=== PATIENT | female | born 1985 | race Caucasian/White ===

== ENCOUNTER 2016-10-02 19:39 | Emergency (ER) | payer SELFPAY ==
[~2016-10-02] VITALS: Ht 160 cm; Wt 45.5 kg
[~2016-10-02 19:39] MED LIST: METH40TA9 PO; XANA1TAB6 PO
[2016-10-02 19:42] VITALS: BP 124/77; PULSE 103; RESP 16; TEMP 97.7; O2SAT 99
[2016-10-02] MEDS ORDERED: PRED-503 PO (20:07)
--- NOTE | 2016-10-02 20:12 | PD ---
HPI Chief Complaint: Allergic/Adverse Reaction Time Seen by Provider: 20:07 Travel History International Travel<30 days: No Contact w/Intl Traveler<30days: No Traveled to known affect area: No History of Present Illness HPI 31-year-old white female presents to emergency Department with complaints of a rash. She states that she has had allergic reactions in the past on multiple occasions. She states that she was referred for skin patch testing but cannot afford the procedure. She states that she typically takes Benadryl with some relief. She feels that she may be allergic to seafood. She states that this had started after eating fried fish that had been cooked in oil that shellfish had been cooked. She denies any glossal edema. No difficulty swallowing. No shortness of breath or wheezing. She does report hives and a pruritic rash diffusely on the body. She has taken some Benadryl with some temporary relief. This is a very similar reaction that she has had in the past. She denies any recent illness. [facility] Past Medical History Narrative Medical Anxiety, allergic reactions Anxiety: Yes Cardiovascular Problems: Yes (HTN) Diminished Hearing: No Hypertension: Yes Musculoskeletal: Yes ("CHRONIC BACK PROBLEMS ASSOCIATED WITH SCOLIOSIS") Immunizations Current: Yes Tetanus Vaccination: < 5 Years ?: Not LMP: IRREGULAR Para: 0 Past Surgical History Gynecologic Surgery: Yes (CERVICAL SURGERY; ) Social History Alcohol Use: Yes Tobacco Use: Yes ("one pack of cigarettes a day") Substance Use: Yes (history of IV drug use) Allergies-Medications (Allergen,Severity, Reaction): Coded Allergies: Codeine (Verified Allergy, Severe, Hives, 10/02/16) RONDEC-DM (Verified Allergy, Severe, "as child,unknown", 10/02/16) Sulfa (Verified Allergy, Severe, "hives", 10/02/16) Reported Meds & Prescriptions Reported Meds & Active Scripts Active Deltasone (Prednisone) 20 Mg Tab 20 Mg PO BID Reported Methadone Hcl (Methadone HCl) 40 Mg Tab 105 Mg PO Xanax 1 mg (Alprazolam) Alprazolam 1 mg Tab 1 Tab PO BID Review of Systems Except as stated in HPI: all other systems reviewed are Neg Physical Exam Narrative GENERAL: Well-developed, well-nourished in no acute distress. Nontoxic appearing. HEAD: Normocephalic, atraumatic. EYES: Pupils equal round and reactive. Extraocular motions intact. No scleral icterus. No injection or drainage. ENT: TMs clear without erythema. The external auditory canals clear. Nose: clear . Posterior pharynx is pink and moist. No tonsillar edema or exudate. Uvula midline. Airway patent. No glossal edema. She is handling her secretions well. Normal voice. NECK: Trachea midline.Supple, nontender, moves head freely. No central bony tenderness or spasm. CARDIOVASCULAR: Regular rate and rhythm without murmurs, gallops, or rubs. RESPIRATORY: Clear to auscultation. Breath sounds equal bilaterally. No wheezes , rales, or rhonchi. GASTROINTESTINAL: Abdomen soft, non-tender, nondistended. No hepato-splenomegaly , or palpable masses. No guarding. EXTREMITIES: No clubbing, cyanosis, or edema. No joint tenderness, effusion, or edema noted. BACK: Nontender without deformity or crepitance. No flank tenderness. Skin: The patient has several areas of raised hives. On the face, extremities and trunk. Data Data Last Documented VS Vital Signs Date Time Temp Pulse Resp B/P Pulse Ox O2 Delivery O2 Flow Rate FiO2 10/02/16 19:42 97.7 103 16 124/77 99 Room Air Orders Diphenhydramine (Benadryl) (10/02/16 20:15) Prednisone (Deltasone) (10/02/16 20:15) MDM Medical Decision Making Medical Screen Exam Complete: Yes Emergency Medical Condition: Yes Medical Record Reviewed: Yes Differential Diagnosis MDM: High Differential diagnoses: Abscess, folliculitis, cellulitis, lymphangitis, allergic reaction, contact dermatitis Narrative Course Patient is given Benadryl 50 mg by mouth, Deltasone 40 mg by mouth. Diagnosis Primary Impression: Allergic reaction Qualified Code: T78.40XA - Allergic reaction, initial encounter Patient Instructions: General Instructions Departure Forms: Tests/Procedures, Work Release Special Instructions: No work 1-2 days. Additional Instructions: Rest. Continue to take 50 mg of Benadryl every 4 hours as needed or itching. 10 mg of Zyrtec daily. Deltasone. Avoid any trigger foods or exposures. Follow-up with your doctor in the next 3-5 days. Return to the ER if any problems. Med/Other Pt SpecificInfo: Prescription(s) given Scripts Prednisone (Deltasone)20 Mg Tab20 Mg PO BID #10 TAB Prov:Alisha Godinez DO 10/02/16 Disposition: 01 DISCHARGE HOME Condition: Stable Charanjit Hurtado Oct 02, 2016 20:12
[2016-10-02] MEDS ORDERED: predniSONE 20 MG TAB PO ONE (20:15)
[2016-10-02] MEDS ORDERED: diphenhydrAMINE HCL 50 MG CAP PO ONE (20:15)
== END 2016-10-02 21:53 | disposition home or self-care (01) ==
LOC: NEPB 19:39
DX: T78.40XA Allergy, unspecified, initial encounter (principal); I10 Essential (primary) hypertension
CPT/HCPCS: 99282; J7512; Q0163